=== PATIENT | male | born 1940 ===

== ENCOUNTER → 2018-11-06 | Outpatient (CLI) | payer MEDICARE ==
[~2018-11-06] MED LIST: CA C1TAB10; CHOL4PAC2 PO; DOXA8TAB11 PO; FINA5TAB64 PO; LISI-362 PO; RANI-886 PO
--- NOTE | 2018-11-06 16:02 | RADIOLOGY IMAGING REPORT ---
[place] [facility] [place] NAME: Fredy Hurtado : 1940 MR: [id number] V: [id number] EXAM DATE: ORDERING PHYSICIAN: JOHN TALAVERA TECHNOLOGIST: Location: [facility] Patient: Fredy Hurtado : 1940 Visit/Account:[id number] Date of Sevice: 11/06/2018 CT SINUS W/O CON COMPARISONS: None ADDITIONAL PERTINENT HISTORY: Nasal polyposis with congestion TECHNIQUE: Multiple axial images were obtained through the paranasal sinuses with coronal and sagitta l reformatted images. No IV contrast was administered. One of the following dose optimization techni ques was utilized in the performance of this exam: Automated exposure control; adjustment of the mA a nd/or kV according to the patient's size; or use of an iterative reconstruction technique. Specific details can be referenced in the facility's radiology CT exam operational policy. FINDINGS: Maxillary sinuses: Marked mucosal thickening involving both maxillary sinuses.. Frontal sinuses: Mild mucosal thickening involving both frontal sinuses.. Ethmoid air cells: Patchy opacification of the anterior ethmoid air cells.. Sphenoid sinuses:Negative. Nasal septum: Moderate nasal septal deviation to the left. 3 mm bony spur projected to the left. So ft tissue fullness involving the anterior aspects of the nasal cavity bilaterally compatible underlyi ng nasal polyposis.. Drainage pathways: Patent Paranasal variance: Prominent left-sided Rachel cells without inflammatory change. Medial orbital salas, cribriform plate, and orbital floors: Negative. Visualized bony skull base Negative. Visualized intracranial contents: Moderate cerebral atrophy. Otherwise negative. Orbits and surrounding soft tissues: Negative. IMPRESSION: 1. Findings compatible with underlying nasal polyps involving the anterior aspects of the nasal cavi ty. 2 paranasal sinus disease as detailed above. 3. Nasal septal deviation to the left with a small bony spur projected to the left. Report Dictated By: Jason Taylor MD at 11/06/2018 3:49 PM Report E-Signed By: Jason Taylor MD at 11/06/2018 3:54 PM WSN:[id number]
== END ==
LOC: CT 00:40
PROVIDERS: ATTEND Otolaryngology
DX: J33.9 Nasal polyp, unspecified (principal); J34.2 Deviated nasal septum
CPT/HCPCS: 70486

== ENCOUNTER → 2018-11-12 | Outpatient (CLI) | payer MEDICARE ==
[~2018-11-12] MED LIST changes: +DOXA4TAB58 PO; +FINA5TAB67 PO; +LOPE2CAP15 PO; +LORA-802 PO
--- NOTE | 2018-11-12 16:14 | EKG ---
FACILITY: [facility] PATIENT NAME: SWETHA BLACKWOOD : [id number] MR: [id number] V: [id number] EXAM DATE: ORDERING PHYSICIAN: JOHN TALAVERA TECHNOLOGIST: Test Reason : Pre-op Blood Pressure : / mmHG Vent. Rate : 063 BPM Atrial Rate : 063 BPM P-R Int : 148 ms QRS Dur : 094 ms QT Int : 414 ms P-R-T Axes : 067 020 034 degrees QTc Int : 423 ms Sinus rhythm No acute appearing findings U waves are present No previous ECGs available Confirmed by NURIA GARCIA ([id number]) on 11/13/2018 6:30:13 AM Referred By: Confirmed By:NURIA GARCIA
== END ==
LOC: LAB 14:43
PROVIDERS: ATTEND Otolaryngology
DX: Z01.818 Encounter for other preprocedural examination (principal); I10 Essential (primary) hypertension
CPT/HCPCS: 36415; 82040; 82247; 82310; 82374; 82435; 82565; 82947; 84075; 84132; 84155; 84295; 84450; 84460; 84520; 93005

== ENCOUNTER 2018-11-25 01:34 | Day surgery (SDC) | payer MEDICARE ==
[~2018-11-25] VITALS: Ht 179.1 cm; Wt 85.7 kg
[2018-11-25] MEDS ORDERED: FAMOTIDINE 20 MG TAB PO ONE (07:05)
[2018-11-25] MEDS ORDERED: ceFAZolin(*) 2GM/D5W 50ML 50 ML IVPB ONE (07:25)
[2018-11-25 07:33] VITALS: BP 151/74
[2018-11-25] MEDS ORDERED: fentaNYL CITR 250 MCG/5 ML AMP ONE (08:09)
[2018-11-25] MEDS ORDERED: DEXAMETHASONE SOD PHOS 10MG/ML ONE ×2 (08:10→08:42)
[2018-11-25] MEDS ORDERED: PROPOFOL EMUL(*) 10MG/ML 20 ML 20 ML ONE (08:10)
[2018-11-25] MEDS ORDERED: LIDOCAINE MPF 1% 5 ML VIAL ONE (08:10)
[2018-11-25] MEDS ORDERED: ONDANSETRON 4 MG/2 ML VIAL ONE (08:10)
[2018-11-25] MEDS ORDERED: ROCURONIUM BR 10 MG/ML 5 ML SY 5 ML ONE (08:11)
[2018-11-25] MEDS ORDERED: LIDO/EPI 1% MDV 1:100,000 20ML INFIL ONE (08:28)
[2018-11-25] MEDS ORDERED: NS(*) 0.9% 250 ML BAG 250 ML ONE (08:28)
[2018-11-25] MEDS ORDERED: DEXAMETHASONE SOD 4 MG/ML VIAL ONE (08:42)
[2018-11-25] MEDS ORDERED: SUGAMMADEX SOD 200 MG/2 ML SDV ONE (08:47)
[2018-11-25] MEDS ORDERED: fentaNYL CITR 100 MCG/2 ML AMP ONE (10:11)
[2018-11-25] MEDS ORDERED: HYDR-653 PO (10:18)
[2018-11-25] MEDS ORDERED: CEFU250T11 PO (10:19)
[2018-11-25] MEDS ORDERED: LIDOCAINE/SOD BICARB 8.4% SYR ID ONE (10:20)
[2018-11-25] MEDS ORDERED: MIDAZOLAM 2 MG/2 ML VIAL IVP PRN (10:20)
[2018-11-25] MEDS ORDERED: NORMOSOL R SOLN(*) 1000 ML BAG 1,000 ML IV PRN (10:20)
--- NOTE | 2018-11-25 10:24 | OPERATIVE REPORT 1 ---
EVENT DATE: November 25, 2018 SURGEON: Joni Grajeda MD ANESTHESIOLOGIST: Romulo Soto MD ANESTHESIA: General endotracheal. PROCEDURES PERFORMED 1. Septoplasty. 2. Submucous resection of bilateral inferior turbinates. 3. Bilateral nasal polypectomies. 4. Bilateral anterior ethmoidectomies and maxillary antrostomies. PREOPERATIVE DIAGNOSES 1. Nasal septal deviation. 2. Bilateral inferior turbinate hypertrophy. 3. Bilateral nasal polyposis. 4. Chronic bilateral anterior, ethmoid and maxillary sinusitis. POSTOPERATIVE DIAGNOSES 1. Nasal septal deviation. 2. Bilateral inferior turbinate hypertrophy. 3. Bilateral nasal polyposis. 4. Chronic bilateral anterior, ethmoid and maxillary sinusitis. INDICATIONS Please refer to preoperative note. DESCRIPTION OF PROCEDURE The patient was positively identified in the preoperative area. He was accompanied there by his . Risks were again explained, including but not limited to bleeding, infection, recurrent polyposis and/or sinusitis, injury to the orbit, vision changes, injury to the skull base, cerebrospinal fluid leak and those associated with anesthesia. He acknowledged understanding those risks. Again, I reviewed the patient's preoperative CT of the sinuses. This was notable for a leftward nasoseptal deviation and opacification of bilateral nasal cavities, anterior, ethmoid and maxillary sinuses. The patient was then brought back to the operative suite, laid supine on the operative table and anesthesia was administered. Once asleep, the patient was positioned and then prepped and draped in usual sterile fashion. I initially decongested the nose by injecting approximately 10 cc's of 1% lidocaine with epinephrine to the bilateral anterior nasoseptal mucosa and packing both nasal cavities with cottonoids containing Afrin solution. I began on the right side. Nasal endoscope was introduced into the nasal cavity. Gross polyposis was encountered. A sample of this was taken and sent for permanent pathology. The remainder of the nasal polypectomy was performed with a microdebrider blade. Approximately 1 cc of 1% lidocaine with epinephrine was infiltrated in the lateral nasal wall . An uncinectomy was performed. The natural maxillary ostium was identified and widened with back-biting forceps and the microdebrider blade. An anterior ethmoidectomy was performed. I then proceeded with the contralateral side. In a similar fashion, nasal endoscope was introduced. A factory representative specimen of the nasal polyposis was removed and sent for permanent pathology. The remainder of the nasal polypectomy was performed with a microdebrider blade. The patient had a severe posterior deflection obstructing access to the ostiomeatal complex. Therefore, I proceeded with the septoplasty. A Solomon incision was made in the left anterior septal mucosa. A subperichondrial flap was elevated. I then incised the anterior nasal septal cartilage approximately 5 mm posterior to the original Aba incision. A contralateral flap was elevated. The deviated portion of the patient's nasal septal cartilage and bone was then removed. The Solomon incision was reapproximated with interrupted Chromic suture. I then proceeded with the sinus portion on the left. Approximately 1 cc of 1% lidocaine with epinephrine was infiltrated into the lateral nasal wall. An uncinectomy was performed. The natural maxillary ostium was identified and widened with back-biting forceps and the microdebrider blade. An anterior ethmoidectomy was performed. I then addressed the inferior turbinates. A stab incision was made at the face of the left inferior turbinate. A caudal elevator was utilized to elevate the mucosa off the underlying bone. A submucous resection was performed with a turbinate blade with the microdebrider. The stab incision was cauterized and suctioned with Bovie electrocautery. The contralateral inferior turbinate was addressed in a similar fashion. Bilateral NasoPore was placed between the middle turbinate and the lateral nasal wall. Bilateral nasoseptal splints were placed and secured to the columella-septal suture. The patient was then turned to Anesthesia for emergence. ESTIMATED BLOOD LOSS 100 mL. COMPLICATIONS No complications. MTDD
[2018-11-25 11:05] VITALS: BP 141/75
[2018-11-25 11:30] VITALS: BP 146/70
[2018-11-25 12:00] VITALS: BP 139/76
[2018-11-25 12:26] VITALS: BP 150/64
[2018-11-25 12:29] VITALS: BP 157/77
== END 2018-11-25 11:05 | disposition home or self-care (01) ==
LOC: OR 01:34
PROVIDERS: ATTEND Otolaryngology
DX: J32.8 Other chronic sinusitis (principal); J34.2 Deviated nasal septum; J34.3 Hypertrophy of nasal turbinates; J33.9 Nasal polyp, unspecified; I10 Essential (primary) hypertension; Z87.891 Personal history of nicotine dependence
CPT/HCPCS: 30140; 30520; 31254; 31256; 88305; 94667; A9270; J1100; J2001; J2405; J2704; J3010; J7050; J0690